=== PATIENT | male | born 1995 | race Caucasian/White ===

== ENCOUNTER 2017-03-29 12:21 | Emergency (ER) | payer OTHER ==
[~2017-03-29] VITALS: Ht 167.6 cm; Wt 56.7 kg
[2017-03-29] MEDS ORDERED: NS(*) 0.9% 1000 ML BAG 1,000 ML IV ONE (12:35)
[2017-03-29 12:37] LABS: PLATELET COUNT, AUTOMATED 512 K/uL (150-450)
--- NOTE | 2017-03-29 12:41 | ER Report ---
History and Physical Time Seen By MD: 12:25 Hx. of Stated Complaint: SIEZURE, HIT HEAD/NECK, LAC TO FOREHEAD HPI/ROS CHIEF COMPLAINT: Seizure HISTORY OF PRESENT ILLNESS: Patient is a 21-year-old male accompanied by his father, who presents the ED via EMS with a recent seizure today. Patient states that he remembers going into the bathroom he believes to wash his hands when he woke up afterwards after it hit the side of his head on the bathtub. He states that EMS was called and brought him in. He states that he has history of seizure disorder since a child. He states that he is currently on Trileptal and had just increased his dosage 3 months ago. He has a new neurologist in [place], [place]. He states that he has seen her once and has plan to see her again a couple months. He states that his last seizures were 3 months ago. He states that he had 2 seizures within a couple days. He states that he did take his Trileptal today and it was just a few minutes prior to him having a seizure. He states that he is having some headache and particularly pain above his left eye where he believes he has a laceration. He states that he did notice blood over his head. He did have some neck pain initially. He states that he feels little bit better right now. He denies any real headache at this time. He denies any nausea, vomiting, vision changes, numbness, tingling. He states he has been feeling well recently and denies any cold symptoms or fever. REVIEW OF SYSTEMS: Constitutional: No fever, no chills. Eyes: No discharge. ENT: No sore throat. Cardiovascular: No chest pain, no palpitations. Respiratory: No cough, no shortness of breath. Gastrointestinal: No abdominal pain, no vomiting. Genitourinary: No hematuria. Musculoskeletal: No back pain. Skin: No rashes. Neurological: See history of present illness. Allergies: Coded Allergies: No Known Drug Allergies (Unverified , 03/29/17) Home Meds Reported Medications Oxcarbazepine (TRILEPTAL) 600 Mg Tablet, 600 MG PO BID 06/24/14 Discontinued Reported Medications Ibuprofen (IBUPROFEN) 200 Mg Capsule, 1 CAP PO Q6H, CAPSULE 06/24/14 Atomoxetine Hcl (STRATTERA) 60 Mg Capsule, 60 MG PO QDAY, #10 CAP TAKE 1 CAPSULE BY MOUTH EVERY DAY 06/24/14 Reviewed Nurses Notes: Yes Old Medical Records Reviewed: Yes Hx Smoking: No Constitutional Vital Sign - Last 24 Hours 03/29/17 03/29/17 03/29/17 03/29/17 12:21 12:22 12:24 12:30 Temp 97.9 Pulse ??? 117 Resp 20 B/P (MAP) 134/78 129/78 (95) 142/57 (85) Pulse Ox 97 O2 Delivery Room Air 03/29/17 03/29/17 03/29/17 03/29/17 12:36 12:51 13:00 13:06 Pulse 108 ??? 99 Resp 15 22 B/P (MAP) 117/70 (86) Pulse Ox 98 95 03/29/17 03/29/17 03/29/17 03/29/17 13:21 13:30 13:36 13:51 Pulse 90 86 87 Resp 17 16 11 B/P (MAP) 114/69 (84) Pulse Ox 96 98 98 03/29/17 03/29/17 14:00 14:06 Pulse 76 Resp 10 B/P (MAP) 124/68 (86) Pulse Ox 97 Physical Exam General Appearane: The patient is alert, has no immediate need for airway protection and no signs of toxicity. Patient appears to be in no acute distress. Eyes: Pupils equal and round no pallor or injection. EOMs are full bilaterally. ENT, Mouth: Mucous membranes are moist. Respiratory: There are no retractions, lungs are clear to auscultation. Cardiovascular: Regular rate and rhythm. Gastrointestinal: Abdomen is soft and non tender, no masses, bowel sounds normal all 4 quadrants. Neurological: Cranial nerves II through XII intact. Skin: There is a 3.5 cm linear laceration of the left eyebrow area. Mild swelling around this area. No ecchymosis appreciated. Musculoskeletal: Neck is supple non tender. Patient is in a c-collar. Extremities are nontender, nonswollen and have full range of motion. DIFFERENTIAL DIAGNOSIS: After history and physical exam differential diagnosis was considered for a seizure including but not limited to electrolyte abnormality, alcohol withdrawal, medication noncompliance, head injury, and breakthrough seizure. Medical Decision Making Data Points Result Diagram: 03/29/17 1212 03/29/17 1212 Laboratory Hematology Test 03/29/17 12:12 Red Blood Count 5.89 M/uL (4.00-5.60) Mean Corpuscular Volume 90.3 fL (80.0-96.0) Mean Corpuscular Hemoglobin 31.1 pg (26.0-33.0) Mean Corpuscular Hemoglobin Concent 34.4 g/dL (32.0-36.0) Red Cell Distribution Width 13.5 % (11.5-14.5) Mean Platelet Volume 7.1 fL (7.2-11.1) Neutrophils (%) (Auto) 38.8 % (39.4-72.5) Lymphocytes (%) (Auto) 45.7 % (17.6-49.6) Monocytes (%) (Auto) 7.8 % (4.1-12.4) Eosinophils (%) (Auto) 7.1 % (0.4-6.7) Basophils (%) (Auto) 0.6 % (0.3-1.4) Nucleated RBC Relative Count (auto) 0.1 /100WBC Neutrophils # (Auto) 5.2 K/uL (2.0-7.4) Lymphocytes # (Auto) 6.2 K/uL (1.3-3.6) Monocytes # (Auto) 1.1 K/uL (0.3-1.0) Eosinophils # (Auto) 1.0 K/uL (0.0-0.5) Basophils # (Auto) 0.1 K/uL (0.0-0.1) Nucleated RBC Absolute Count (auto) 0.02 K/uL Sodium Level 138 mmol/L (137-145) Potassium Level 3.6 mmol/L (3.5-5.0) Chloride Level 97 mmol/L (98-107) Carbon Dioxide Level 11 mmol/L (22-30) Blood Urea Nitrogen 9 mg/dl (9-21) Creatinine 1.00 mg/dl (0.66-1.25) Glomerular Filtration Rate Calc > 60.0 Random Glucose 138 mg/dl (75-110) Calcium Level 9.8 mg/dl (8.4-10.2) Total Bilirubin 0.6 mg/dl (0.2-1.3) Aspartate Amino Transf (AST/SGOT) 36 U/L (0-35) Alanine Aminotransferase (ALT/SGPT) 53 U/L (0-56) Alkaline Phosphatase 77 U/L (0-126) Total Protein 9.5 gm/dl (6.3-8.2) Albumin 5.5 g/dl (3.5-5.0) Chemistry Test 03/29/17 12:12 White Blood Count 13.5 k/uL (4.5-11.0) Red Blood Count 5.89 M/uL (4.00-5.60) Hemoglobin 18.3 g/dL (14.0-18.0) Hematocrit 53.2 % (42.0-52.0) Mean Corpuscular Volume 90.3 fL (80.0-96.0) Mean Corpuscular Hemoglobin 31.1 pg (26.0-33.0) Mean Corpuscular Hemoglobin Concent 34.4 g/dL (32.0-36.0) Red Cell Distribution Width 13.5 % (11.5-14.5) Platelet Count 512 K/uL (150-450) Mean Platelet Volume 7.1 fL (7.2-11.1) Neutrophils (%) (Auto) 38.8 % (39.4-72.5) Lymphocytes (%) (Auto) 45.7 % (17.6-49.6) Monocytes (%) (Auto) 7.8 % (4.1-12.4) Eosinophils (%) (Auto) 7.1 % (0.4-6.7) Basophils (%) (Auto) 0.6 % (0.3-1.4) Nucleated RBC Relative Count (auto) 0.1 /100WBC Neutrophils # (Auto) 5.2 K/uL (2.0-7.4) Lymphocytes # (Auto) 6.2 K/uL (1.3-3.6) Monocytes # (Auto) 1.1 K/uL (0.3-1.0) Eosinophils # (Auto) 1.0 K/uL (0.0-0.5) Basophils # (Auto) 0.1 K/uL (0.0-0.1) Nucleated RBC Absolute Count (auto) 0.02 K/uL Glomerular Filtration Rate Calc > 60.0 Calcium Level 9.8 mg/dl (8.4-10.2) Total Bilirubin 0.6 mg/dl (0.2-1.3) Aspartate Amino Transf (AST/SGOT) 36 U/L (0-35) Alanine Aminotransferase (ALT/SGPT) 53 U/L (0-56) Alkaline Phosphatase 77 U/L (0-126) Total Protein 9.5 gm/dl (6.3-8.2) Albumin 5.5 g/dl (3.5-5.0) EKG/Imaging EKG Interpretation 12 lead EKG: Rhythm: Sinus tachycardia, rate 108 bpm QRS: normal ST segments: No acute ST changes identified. Monitor Interpretation: Sinus Tachycardia Imaging CT Head and C-Spine: IMPRESSION Negative exam. Report Dictated By: Jorge Nagel MD at 03/29/2017 1:19 PM Report E-Signed By: Jorge Nagel MD at 03/29/2017 1:[address] Facial Bones: IMPRESSION: 1. No acute osseous abnormality facial bones. Report Dictated By: Shiva Toney at 03/29/2017 2:00 PM Report E-Signed By: Shiva Toney at 03/29/2017 2:05 PM ED Course/Re-evaluation Clinical Indication for ER IV: Hydration ED Course Will obtain labs and CT imaging of the head, facial bones, C-spine. Patient will be given 1 L LR bolus. 03/29/2017 12:50:28 pm - discussed some of his labs with him. It appears that he does have a CO2 level of 11 which would be somewhat typical after a seizure. Hopefully, the LR bolus will help to raise this. Patient also has some mild leukocytosis as well as mildly elevated hemoglobin, hematocrit, thrombocytosis. Leukocytosis likely stress-induced from the seizure. Procedure: Laceration repair. Verbal consent was obtained from the patient. The replay 5 cm linear laceration on the left eyebrow was anesthetized in the usual fashion with 1% lidocaine. The wound was scrubbed, draped and explored to its base with a gloved finger. There were no deep structures involved. No tendon injury was identified. The wound was repaired with 5 5-0 Prolene sutures in simple interrupted fashion. The wound repair was simple. The procedure was performed by myself. Bandage and bacitracin was applied. 03/29/2017 1:51:08 pm - discussed all imaging results with patient. Appears to be no fracture or intracranial injury. Advised him to follow up with his urologist given his breakthrough seizure. Decision to Disposition Date: Mar 29, 2017 Decision to Disposition Time: 12:40 Depart Departure Latest Vital Signs Vital Signs Date Time Temp Pulse Resp B/P (MAP) Pulse Ox O2 Delivery O2 Flow Rate FiO2 03/29/17 14:06 76 10 97 03/29/17 14:00 124/68 (86) 03/29/17 12:22 97.9 Room Air Impression: Primary Impression: Seizure Additional Impressions: Laceration of left eyebrow Head injury Neck strain Condition: Improved Disposition: HOME OR SELF-CARE Referrals: EDUARDO ESCOBAR (PCP) [facility] Departure Forms: ER Transition Record, Medications Reconciliation, Patient Portal Information Patient Instructions: Facial Laceration (ED), Head Injury (ED), Recurrent Seizures in Adults (ED) Additional Instructions: Continue your Trileptal medication. Follow-up with your primary care provider and neurologist in 2-3 days. No [address]. Suture removal should be completed in 5 days. Monitor for any signs and symptoms of worsening head injury or signs and symptoms of infection. If having any worsening or concerning symptoms. Return to the emergency department. Problem Qualifiers Additional Impressions: Laceration of left eyebrow Encounter type: initial encounter Qualified Codes: S01.112A - Laceration without foreign body of left eyelid and periocular area, initial encounter Head injury Encounter type: initial encounter Qualified Codes: S09.90XA - Unspecified injury of head, initial encounter Neck strain Encounter type: initial encounter Qualified Codes: S16.1XXA - Strain of muscle, fascia and tendon at neck level, initial encounter ETHAN YBARRA PA-C Mar 29, 2017 12:40
[2017-03-29] MEDS ORDERED: LR(*) 1000 ML BAG 1,000 ML IV PRN (12:50)
--- NOTE | 2017-03-29 13:01 | EKG ---
FACILITY: [facility] [place] PATIENT NAME: HUY RAIN : [id number] MR: [id number] V: [id number] EXAM DATE: ORDERING PHYSICIAN: ETHAN YBARRA TECHNOLOGIST: Miguelito Austin Reason : Blood Pressure : / mmHG Vent. Rate : 108 BPM Atrial Rate : 108 BPM P-R Int : 142 ms QRS Dur : 104 ms QT Int : 336 ms P-R-T Axes : 081 159 058 degrees QTc Int : 450 ms Sinus tachycardia R wave progression consistent with old ant/sep NH vs lead placement No previous ECGs available Confirmed by PAUL JOYCE ([id number]) on 03/29/2017 6:34:40 PM Referred By: Confirmed By:PAUL JOYCE
--- NOTE | 2017-03-29 13:29 | RADIOLOGY IMAGING REPORT ---
FACILITY: [facility] [place] PATIENT NAME: Alexys Major : 1995 MR: [id number] V: [id number] EXAM DATE: ORDERING PHYSICIAN: ETHAN YBARRA TECHNOLOGIST: Location: [facility] Patient: Alexys Major : 1995 Visit/Account:[id number] Date of Sevice: 03/29/2017 HEAD W/O CONTRAST, C-SPINE W/O CONTRAST CT BRAIN WITHOUT CONTRAST CLINICAL INDICATION: SEIZURE COMPARISON: No priors TECHNIQUE: Contiguous axial CT images of the brain and cervical spine were obtained without IV contra st. Sagittal and coronal reformatted images were also performed. One of the following dose optimization techniques was utilized in the performance of this exam: Autom ated exposure control; adjustment of the mA and/or kV according to the patient's size; or use of an i terative reconstruction technique. Specific details can be referenced in the facility's radiology C T exam operational policy. FINDINGS: BRAIN: BRAIN:The ventricles are symmetric and normal in size. The brain parenchyma appears normal. The bra instem and cerebellum appear normal. The pierre-white matter differentiation is preserved and the basil ar cisterns appear normal. There is no mass, acute infarct, hemorrhage or shift of midline. PARANASAL SINUSES & MASTOIDS: Well aerated. SKULL BASE & CRANIUM: Visualized osseous structures are intact. SOFT TISSUES: No soft tissue swelling or hematoma is appreciated. CERVICAL SPINE: There is no prevertebral soft tissue swelling. No acute fracture or dislocation is present. Vertebra l alignment is maintained without spondylolisthesis. Vertebral bodies heights are preserved. The cran iocervical junction appears normal. There is no evidence for traumatic disc herniation.The visualize d portions of the upper neck and lung apices are within normal limits. IMPRESSION Negative exam. Report Dictated By: Jorge Nagel MD at 03/29/2017 1:19 PM Report E-Signed By: Jorge Nagel MD at 03/29/2017 1:24 PM WSN:[id number]
--- NOTE | 2017-03-29 13:29 | RADIOLOGY IMAGING REPORT ---
FACILITY: [facility] PATIENT NAME: Alexys Major : 1995 MR: [id number] V: [id number] EXAM DATE: ORDERING PHYSICIAN: ETHAN YBARRA TECHNOLOGIST: Location: [facility] Patient: Alexys Major : 1995 Visit/Account:[id number] Date of Sevice: 03/29/2017 HEAD W/O CONTRAST, C-SPINE W/O CONTRAST CT BRAIN WITHOUT CONTRAST CLINICAL INDICATION: SEIZURE COMPARISON: No priors TECHNIQUE: Contiguous axial CT images of the brain and cervical spine were obtained without IV contra st. Sagittal and coronal reformatted images were also performed. One of the following dose optimization techniques was utilized in the performance of this exam: Autom ated exposure control; adjustment of the mA and/or kV according to the patient's size; or use of an i terative reconstruction technique. Specific details can be referenced in the facility's radiology C T exam operational policy. FINDINGS: BRAIN: BRAIN:The ventricles are symmetric and normal in size. The brain parenchyma appears normal. The bra instem and cerebellum appear normal. The pierre-white matter differentiation is preserved and the basil ar cisterns appear normal. There is no mass, acute infarct, hemorrhage or shift of midline. PARANASAL SINUSES & MASTOIDS: Well aerated. SKULL BASE & CRANIUM: Visualized osseous structures are intact. SOFT TISSUES: No soft tissue swelling or hematoma is appreciated. CERVICAL SPINE: There is no prevertebral soft tissue swelling. No acute fracture or dislocation is present. Vertebra l alignment is maintained without spondylolisthesis. Vertebral bodies heights are preserved. The cran iocervical junction appears normal. There is no evidence for traumatic disc herniation.The visualize d portions of the upper neck and lung apices are within normal limits. IMPRESSION Negative exam. Report Dictated By: Jorge Nagel MD at 03/29/2017 1:19 PM Report E-Signed By: Jorge Nagel MD at 03/29/2017 1:24 PM WSN:[id number]
[2017-03-29] MEDS ORDERED: BACITRACIN OINT 15 GM TUBE TP ONE (13:55)
[2017-03-29] MEDS ORDERED: DIPHTH/TETANUS/ACEL. PERTUSSIS IM ONLY ONE (13:55)
[2017-03-29 14:00] VITALS: BP 124/68
--- NOTE | 2017-03-29 14:08 | RADIOLOGY IMAGING REPORT ---
FACILITY: [facility] [place] PATIENT NAME: Alexys Major : 1995 MR: [id number] V: [id number] EXAM DATE: ORDERING PHYSICIAN: ETHAN YBARRA TECHNOLOGIST: Location: [facility] [place] Patient: Alexys Major : 1995 Visit/Account:[id number] Date of Sevice: 03/29/2017 CT facial bones Indication: Seizure. Head injury. Superior left orbital pain. Comparison: None available Technique: Axial CT images are obtained through the facial bones. Reformatted coronal and sagittal im ages were reviewed. One of the following dose optimization techniques was utilized in the performance of this exam: Autom ated exposure control; adjustment of the mA and/or kV according to the patient's size; or use of an i terative reconstruction technique. Specific details can be referenced in the facility's radiology C T exam operational policy. Findings: The bilateral pterygoid plates are intact. The bilateral orbits are intact. Minimal bilateral maxillary sinus mucosal thickening is seen. Remaining paranasal sinuses are well-ae rated. The visualized upper cervical spine is also unremarkable. No focal soft tissue abnormality is seen. Specifically, no left supraorbital swelling. IMPRESSION: 1. No acute osseous abnormality facial bones. Report Dictated By: Shiva Toney at 03/29/2017 2:00 PM Report E-Signed By: Shiva Toney at 03/29/2017 2:05 PM WSN:[id number]
== END 2017-03-29 14:28 | disposition home or self-care (01) ==
LOC: ER 12:27
DX: R56.9 Unspecified convulsions (principal); S01.112A Laceration without foreign body of left eyelid and periocular area, initial encounter; S09.90XA Unspecified injury of head, initial encounter; S16.1XXA Strain of muscle, fascia and tendon at neck level, initial encounter; W22.03XA Walked into furniture, initial encounter
CPT/HCPCS: 12013; 70450; 70486; 72125; 85025; 90471; 90715; 93005; 96360; 99284; J7120; 82040; 82247; 82310; 82374; 82435; 82565; 82947; 84075; 84132; 84155; 84295; 84450; 84460; 84520

== ENCOUNTER → 2017-03-29 | Outpatient (CLI) | payer OTHER ==
[~2017-03-29] MED LIST: ATOM60CA4 PO; IBUP200C71 PO; OXCA600T32 PO
== END ==
LOC: AMB 11:58
PROVIDERS: ATTEND Nurse Practitioner
DX: S01.112A Laceration without foreign body of left eyelid and periocular area, initial encounter (principal); G40.909 Epilepsy, unspecified, not intractable, without status epilepticus; W18.39XA Other fall on same level, initial encounter
CPT/HCPCS: A0425; A0427